=== PATIENT | male | born 1965 | race Caucasian/White ===

== ENCOUNTER 2019-02-08 14:43 | Outpatient (CLI) | payer OTHER ==
--- NOTE | 2019-02-08 16:27 | MRI ---
Exam: Brain MRI with and without contrast Internal auditory canal MRI with and without contrast HISTORY: Tinnitus. Dizziness. Ringing in the right ear. COMPARISON: None FINDINGS: Brain MRI: Hemorrhage: No parenchymal hemorrhage. No extra-axial hematoma. Calvarium: Appropriate T1 marrow signal intensity Midline brain parenchyma: Unremarkable Cerebrum:No parenchymal mass, mass effect or midline shift. Brain volume, age-appropriate. Cortical g ray-white matter differentiation is preserved. No significant T2 or FLAIR white matter hyperintensities. Ventricles: No evidence of hydrocephalus. Sinuses and mastoid air cells: Adequate aeration Diffusion: Central arterial flow is maintained. Absent restricted diffusion. Postcontrast images: No pathologic enhancement of the brain parenchyma. Internal auditory canal MRI: Symmetric signal intensity of the seventh/eighth as well as fifth cranial nerve complexes. There is n o abnormal enhancement. There is appropriate signal intensity of the visualized internal auditory canal and inner ear structures. No abnormal enhancement or enhancing masses. IMPRESSION: 1. No pathologic enhancement of the brain parenchyma. Absent restricted diffusion. No acute infarct. 2. Unremarkable MRI of the internal auditory canals. No abnormal enhancement Transcribed Date/Time: 02/08/2019 6:28 PM
== END 2019-02-08 14:44 | disposition home or self-care (01) ==
LOC: BICMRI 14:43
PROVIDERS: ATTEND Otolaryngology Plastic Surgery within the Head & Neck
DX: R42 Dizziness and giddiness (principal); H93.11 Tinnitus, right ear
CPT/HCPCS: 70553